=== PATIENT | female | born 1995 | race Caucasian/White ===

== ENCOUNTER 2020-11-07 10:04 | Emergency (ER) | payer BC, OTHER ==
[~2020-11-07 10:04] MED LIST: AMOXICILLIN500 MG PO; COLACE 100MG C100 MG PO; ERYTHROMYCIN O3.5 GM OU; KEFLEX CAP 500500 MG PO; KEFLEX500 MG PO; NAPROSYN500 MG PO; PROVENTIL HFA6.7 GM INH
[2020-11-07] MEDS ORDERED: NAPROSYN500 MG PO (13:40)
[2020-11-07] MEDS ORDERED: CYCLOBENZAPRINE10 MG PO (13:40)
== END 2020-11-07 18:47 | disposition home or self-care (01) ==
LOC: ER1 10:04
DX: U07.1 COVID-19 (principal); J06.9 Acute upper respiratory infection, unspecified; M54.2 Cervicalgia
CPT/HCPCS: 96372; 99283; J1885; J2360; U0003

== ENCOUNTER 2021-05-18 10:34 | Emergency (ER) | payer BC ==
[~2021-05-18 10:34] MED LIST changes: +CYCLOBENZAPRINE10 MG PO
== END 2021-05-18 15:27 | disposition home or self-care (01) ==
LOC: ER1 10:34
DX: R05 Cough (principal); R06.02 Shortness of breath; Z20.822 Contact with and (suspected) exposure to COVID-19
CPT/HCPCS: 71046; 99285; U0002